=== PATIENT | female | born 1965 | race Caucasian/White ===

== ENCOUNTER → 2020-09-18 | Outpatient (CLI) | payer OTHER ==
[~2020-09-18] MED LIST: DITROPAN 5 MG TA5 MG PO; DOCUSATE SODIU250 MG PO; HYDROCODONE-AC1 EACH PO; IBUPROFEN600 MG PO
[2020-09-18 12:11] LABS: HEMOGLOBIN 16.8 gm/dl (12.3-15.3); RED BLOOD COUNT 5.3 M/UL (4.00-5.10); WHITE BLOOD COUNT 8.9 K/UL (4.5-11.0)
== END ==
LOC: OPSV2 09-15 10:00
PROVIDERS: Obstetrics & Gynecology
DX: Z01.812 Encounter for preprocedural laboratory examination (principal); N81.10 Cystocele, unspecified
CPT/HCPCS: 36415; 81001; 85025

== ENCOUNTER 2020-09-22 09:38 | Day surgery (SDC) | payer OTHER ==
[~2020-09-22] VITALS: Ht 162.6 cm; Wt 112.5 kg
[2020-09-22] MEDS ORDERED: IBUPROFEN600 MG PO (14:24)
[2020-09-22] MEDS ORDERED: DITROPAN 5 MG TA5 MG PO (14:24)
[2020-09-22] MEDS ORDERED: HYDROCODONE-AC1 EACH PO (14:24)
[2020-09-22] MEDS ORDERED: DOCUSATE SODIU250 MG PO (14:24)
== END 2020-09-23 10:08 | disposition home or self-care (01) ==
LOC: OR 09:38 → MED SURG 4 17:14 → OR 09-23 10:08
DX: N99.3 Prolapse of vaginal vault after hysterectomy (principal); N99.4 Postprocedural pelvic peritoneal adhesions; N39.46 Mixed incontinence; I10 Essential (primary) hypertension; J44.9 Chronic obstructive pulmonary disease, unspecified; E66.9 Obesity, unspecified; F32.9 Major depressive disorder, single episode, unspecified; F41.0 Panic disorder [episodic paroxysmal anxiety]; F17.210 Nicotine dependence, cigarettes, uncomplicated; Z90.710 Acquired absence of both cervix and uterus; Z68.39 Body mass index [BMI] 39.0-39.9, adult; Z88.5 Allergy status to narcotic agent
CPT/HCPCS: 71045; 93005; C1769; J0690; J1100; J2001; J2250; J2405; J2704; J2710; J3010; J7050; J7120

== ENCOUNTER 2021-10-14 15:12 | Inpatient (IN) | payer OTHER ==
[~2021-10-14] VITALS: Ht 162.6 cm; Wt 113.4 kg
[2021-10-14 16:59] LABS: HEMOGLOBIN 16.3 gm/dl (12.3-15.3); RED BLOOD COUNT 5.16 M/UL (4.00-5.10); WHITE BLOOD COUNT 25.2 K/UL (4.5-11.0)
[2021-10-14 17:21] LABS: BUN/CREATININE RATIO 21 (0-10)
[2021-10-14 23:17] LABS: BORDETELLA PARAPERTUSSIS Not Detected (Not Detectd); BORDETELLA PERTUSSIS Not Detected (Not Detectd); CHLAMYDIA PNEUMONIAE Not Detected (Not Detectd); CORONAVIRUS HKU1 Not Detected (Not Detectd); CORONAVIRUS NL63 Not Detected (Not Detectd); CORONAVIRUS OC43 Not Detected (Not Detectd); CORONOAVIRUS 229E Not Detected (Not Detectd); HUMAN METAPNEUMOVIRUS Not Detected (Not Detectd); HUMAN RHINOVIRUS/ENTEROVIRUS Not Detected (Not Detectd); INFLUENZA A Not Detected (Not Detectd); INFLUENZA B Not Detected (Not Detectd); MYCOPLASMA PNEUMONIAE Not Detected (Not Detectd); PARAINFLUENZA VIRUS 1 Not Detected (Not Detectd); PARAINFLUENZA VIRUS 2 Not Detected (Not Detectd); PARAINFLUENZA VIRUS 4 Not Detected (Not Detectd); RESPIRATORY SYNCYTIAL VIRUS Not Detected (Not Detectd)
[2021-10-15 00:34] LABS: PARAINFLUENZA VIRUS 3 DETECTED (Not Detectd); SARS-CoV-2 NOT DETECTED (Not Detectd)
[2021-10-15 02:02] LABS: HEMOGLOBIN 14.7 gm/dl (12.3-15.3); RED BLOOD COUNT 4.69 M/UL (4.00-5.10); WHITE BLOOD COUNT 21.3 K/UL (4.5-11.0)
[2021-10-15 02:28] LABS: BUN/CREATININE RATIO 22 (0-10)
[2021-10-16 06:29] LABS: RED BLOOD COUNT 4.52 M/UL (4.00-5.10)
[2021-10-16 06:52] LABS: BUN/CREATININE RATIO 41 (0-10)
[2021-10-16] MEDS ORDERED: LEVOFLOXACIN500 MG PO (09:47)
[2021-10-16] MEDS ORDERED: DOXYCYCLINE HY100 M2 PO (09:47)
[2021-10-16] MEDS ORDERED: albuterol prn (10:40)
[2021-10-16] MEDS ORDERED: MEDROL4 MG PO (10:40)
[2021-10-16] MEDS ORDERED: GLUCOPHAGE 500500 MG PO (10:43)
[2021-10-19 16:10] LABS: ORGANISM ID Not indicated. (.); SPECIMEN SOURCE Urine (.); STREPTOCOCCUS PNEUMONIAE AG Positive (Negative)
== END 2021-10-16 12:18 | disposition home or self-care (01) | DRG 871 ==
LOC: ER1 15:12 → CDU 18:03 → MED SURG 4 22:29
PROVIDERS: Physician Assistant; ADMIT Internal Medicine
DX: A41.89 Other specified sepsis (principal); J96.01 Acute respiratory failure with hypoxia; J15.9 Unspecified bacterial pneumonia; Z20.822 Contact with and (suspected) exposure to COVID-19; J12.2 Parainfluenza virus pneumonia; J44.0 Chronic obstructive pulmonary disease with (acute) lower respiratory infection; Z68.41 Body mass index [BMI] 40.0-44.9, adult; E66.9 Obesity, unspecified; F17.210 Nicotine dependence, cigarettes, uncomplicated; R65.20 Severe sepsis without septic shock; R73.9 Hyperglycemia, unspecified; T38.0X5A Adverse effect of glucocorticoids and synthetic analogues, initial encounter; E83.42 Hypomagnesemia; Z90.710 Acquired absence of both cervix and uterus; Z98.51 Tubal ligation status; Z98.890 Other specified postprocedural states; Z88.8 Allergy status to other drugs, medicaments and biological substances; Z88.6 Allergy status to analgesic agent
CPT/HCPCS: 0240U; 36415; 36600; 71045; 80053; 81001; 82550; 82553; 82803; 82962; 83036; 83605; 83735; 83880; 84484; 85025; 85027; 85652; 86140; 87040; 87070; 87086; 87205; 87278; 87633; 87899; 93005; 94640; 94664; 94760; J0456; J0696; J1650; J1885; J2185; J2920; J2930; Q9967